=== PATIENT | male | born 1990 | race Caucasian/White ===

== ENCOUNTER 2017-01-01 09:26 | Emergency (ER) | payer BC | END 2017-01-01 11:11 | disposition home or self-care (01) | LOC: ER 09:26 | DX: J06.9 Acute upper respiratory infection, unspecified (principal); R05 Cough; J02.9 Acute pharyngitis, unspecified; Z20.828 Contact with and (suspected) exposure to other viral communicable diseases | CPT/HCPCS: 70220; 87070; 87400; 87880; 99283-25 ==

== ENCOUNTER 2017-02-16 04:30 | Emergency (ER) | payer BC | END 2017-02-16 05:20 | disposition left against medical advice (07) | LOC: ER 04:30 | DX: Z53.21 Procedure and treatment not carried out due to patient leaving prior to being seen by health care provider (principal) | CPT/HCPCS: 73564; 99211 ==